=== PATIENT | male | born 2000 | race Caucasian/White ===

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

== ENCOUNTER 2023-10-15 08:56 | Outpatient (CLI) | payer BC, SELFPAY ==
--- NOTE | 2023-10-15 08:56 | CA_ITS ---
APPROVED REPORT Exam: Exercise Treadmill Technologist: Shahla Smalls Ht: 6 ft 5 in Wt: 202 lbs BSA: 2.25 m2 HR: 48 bpm BP: 130/65 mmHg Rhythm: NSR Indications: Chest pain Medical History Medications: No known home meds,,,,, Stress Test Details Test: Apolinar HR Resting HR: 62 bpm Max Heart Rate (APMHR): 199 bpm Max HR Achieved: 173 bpm Target HR (85% APMHR): 169 bpm % of APMHR: 87 Recovery HR: 86 bpm HR response to stress: Normal HR response to stress BP Resting BP: 130.0/65.0 mmHg Max BP: 179.0/76.0 mmHg Recovery BP: 138.0/71.0 mmHg BP response to stress: Normal blood pressure response to stress. ECG Resting ECG: Bradycardia with sinus arrhythmia, right bundle branch block Stress EC mm horizontal ST depression Arrhythmia: PVCs Recovery ECG: Return to baseline within 3 minutes of recovery Recovery Arrhythmia: PVC Clinical Exercise duration: 12:43 min Highest Stage Achieved: Exercise capacity: 12.8 METs Overall Exercise Capacity for Age: Average Stress ECG Conclusion Patient exercised 12:43 on Apolinar Protocol. Test stopped due to shortness of air. Symptoms: No chest pain. Arrhythmias/Ectopy: PVCs ST-T Changes: Approximately 1mm horizontal ST depression Conclusion: Average exercise capacity. EKG changes positive for ischemia with decreased specificity due to baseline right bundle branch block. GXT only (no imaging). Further evaluation with either coronary CTA (CCTA) vs. imaging stress test (i.e. nuclear stress test) is recommended in the setting of abnormal ECG findings at peak stress. Test Summary REST . . . . . . . Sitting REST . . . . . . . Standing REST 03:09 0.0 0.0 62 . 130/ 65 . . Stage 1 01:00 10.0 1.7 85 . . . . Stage 1 02:00 10.0 1.7 93 . . . . Stage 1 03:00 10.0 1.7 93 . 154/ 60 . . Stage 2 01:00 12.0 2.5 106 . . . . Stage 2 02:00 12.0 2.5 110 . . . . Stage 2 03:00 12.0 2.5 106 . 156/ 58 . . Stage 3 01:00 14.0 3.4 122 . . . . Stage 3 02:00 14.0 3.4 132 . . . . Stage 3 03:00 14.0 3.4 136 . 170/ 60 . . Stage 4 01:00 16.0 4.2 142 . . . . Stage 4 02:00 16.0 4.2 156 . . . . Stage 4 03:00 16.0 4.2 161 . . . . Stage 5 00:43 18.0 5.0 171 . . . Stop exercise at 12:43 RECOVERY 01:00 0.0 0.0 128 . . . . RECOVERY 02:00 0.0 0.0 104 . . . . RECOVERY 03:00 0.0 0.0 93 . 179/ 76 . . RECOVERY 04:00 0.0 0.0 89 . 146/ 73 . . RECOVERY 05:00 0.0 0.0 86 . 138/ 71 . . RECOVERY 05:20 0.0 0.0 86 . 138/ 71 . . Electronically signed by : Fatemeh Lainez MD 10/22/2023 00:49:53
--- NOTE | 2023-10-15 08:56 | CA_ITS ---
APPROVED REPORT EXAM: Comprehensive 2D, Doppler, and color-flow Echocardiogram Machine Sweeper Brush Maker: Mackenzie Chu, RT(R) Ht: 6 ft 5 in Wt: 202lbs BSA: 2.25 BP: 160/85 mmHg Indications: CP, SOB, abn EKG 2D Dimensions Left Atrium 2.87 cm M: 3.0 - 4.0 EF AP4 58.60 % LVOT 2.11 cm (M/F) 1.5-2.5 GL Strain -16.9 % M-Mode Dimensions RVDd 2.68 cm (0.9-2.6) LVDd 5.25 cm (3.5-5.7) Ao Diam 3.44 cm (2.0-3.7) LVDs 3.86 cm (3.5-5.7) IVSd 0.96 cm (0.6-1.1) PWd 0.86 cm (0.6-1.1) EF (Teich) 51.40% FS 26.50% EDV (Teich) 132.40 mL ESV (Teich) 64.30 mL LV Diastology E Decel Time 178 (160-240 msec) E/A Ratio 1.5 MED E' 9.0 (>= 7 cm/sec) E'/MED E' Ratio 8.44 (<= 14) LAT E' 16.3 (>= 10 cm/sec) E/LAT E' Ratio 4.66 (<= 14) Mitral Valve MV E Max Rock. 76.0 (40-130 cm/s) MV A Velocity 51.0 (40-130 cm/s) E/A Ratio 1.49 MV Decel. Time 178 (160-240 ms) Tricuspid Valve TR P. Velocity 231.00 cm/s RAP Estimate 10.00 mmHg RVSP 31.30 mmHg Left Ventricle The left ventricle is normal size. The left ventricular systolic function is normal. The left ventricular ejection fraction is within the normal range. There is normal left ventricular wall thickness. There is normal LV segmental wall motion. The left ventricular diastolic function is normal. LVEF is 55%. Right Ventricle The right ventricle is normal size. The right ventricular systolic function is normal. Atria The left atrium size is normal. The right atrium size is normal. There is no Doppler evidence of interatrial shunt. Aortic Valve The aortic valve opens well. The aortic valve is trileaflet. There is no aortic valvular stenosis. No aortic regurgitation is present. Mitral Valve The mitral valve is normal in structure. No evidence of mitral valve stenosis. There is no mitral valve regurgitation noted. Tricuspid Valve The tricuspid valve leaflets are thin and pliable. Mild tricuspid regurgitation. RVSP is 20-25 mmHg. Pulmonic Valve The pulmonary valve is normal in structure. Mild pulmonic regurgitation. Great Vessels The aortic root is normal in size. The ascending aorta is not well-visualized. IVC is normal in size and collapses >50% with inspiration. Pericardium There is no pericardial effusion. Other Information Study Quality: Adequate Conclusion Normal biventricular systolic function. Mild TR, mild PI. Electronically signed by : Fatemeh Lainez MD 10/21/2023 11:58:30
== END 2023-10-15 23:59 | disposition home or self-care (01) ==
LOC: RT 08:56
PROVIDERS: PCP Internal Medicine Adolescent Medicine; Visit Provider Nurse Practitioner Family
DX: R94.31 Abnormal electrocardiogram [ECG] [EKG] (principal); R06.09 Other forms of dyspnea; R07.89 Other chest pain
CPT/HCPCS: 93017; 93018; 93306

== ENCOUNTER 2023-12-16 07:08 | Outpatient (CLI) | payer BC, SELFPAY ==
--- NOTE | 2023-12-16 07:09 | CT_ITS ---
APPROVED REPORT Wreath And Garland Maker Hand: CLINICAL INDICATION Chest Pain TECHNIQUE Image Acquisition: A 128 slice MDCT scanner ([employer] View) was used for data acquisition. A noncontrast coronary calcium scan was performed. A CT attenuation threshold of 130 Hounsfield units (HU) was used for the detection of calcium in contiguous voxels of 1 sq mm in area to be counted as individual lesions. Bolus tracking in the ascending aorta with a threshold of 180 HU was performed. Immediately afterwards, ECG synchronized cardiac CT was then performed from the cardiac base to apex using retrospective gating with ECG tube current modulation. A total of 85 mL of Isovue 370 mg/mL contrast medium was administered at 5 mL/sec followed by a saline flush using a biphasic injection protocol. A tube voltage of 120 KVp was used. The patient received the following medications prior to the cardiac CT. 0.8 mg of sublingual nitroglycerin The average heart rate at the time of acquisition was 63 bpm and regular. Image Reconstruction Transaxial images were reconstructed at 0.67 mm slide thickness. Data was reviewed interactively on an advanced workstation capable of 2 and 3-dimensional displays in all conventional reconstruction formats, including multiplanar reformations, maximum intensity projections, curved multiplanar reformations, and volume rendered reconstructions. When applicable, selected routine images describing the relevant coronary anatomy and pathology were saved and sent to PACS. Complications None Technical Quality Overall image quality was good. Coronary artery opacification was adequate. Total DLP (Dose-Length Product) is 1317.1 mGy-cm. The reported value represents the total of one or more individual components during the CT acquisition of this date and at this time, and as such, the same value may appear in more than one CT report depending on the interpreting/reporting physicians. COMPARISON None FINDINGS CT Coronary Calcium Scoring LMA (Left Main Artery) = 0 LAD (Left Anterior Descending) = 0 LCX (Left Coronary Circumflex) = 0 RCA (Right Coronary Artery) = 0 Total Calcium Score = 0 using the AJ-130 method. The interpretation of the calcium heart score is based on the following continuum*: 0 = no calcified plaque detected (risk of coronary artery disease is very low ??? less than 5%) 1-10 = calcium detected in extremely minimal levels (risk of coronary diseases is still low ??? less than 10%) 11-100 = mild levels of plaque detected with certainty (mild or minimal narrowing of heart arteries is likely) 101-400 = definite,at least moderate levels of plaque detected (relatively high risk of a heart attack within 3-5 years) >401-999 = extensive levels of plaque detected (high risk of heart attack, high levels of vascular disease are present, high likelihood of at least one significant coronary narrowing) *The calcium heart score quantifies the burden of coronary calcification/plaque in the coronary arteries. The calcium heart score is not able to evaluate the presence or burden of non-calcified (i.e. soft) plaque. There is no identifiable calcification in the aortic valve, mitral annulus or mitral valve, pericardium, or myocardium. Coronary CT Angiography The coronary arterial system is right dominant. Quantitative Stenosis Grading: Left Main (LM): The left main originates normally from the left sinus of Valsalva. The LM bifurcates into the left anterior descending artery and left circumflex artery. The LM is patent with no evidence of atherosclerosis. Left Anterior Descending (LAD) and Diagonal Branches: The LAD gives off 2 diagonal branch(es). The LAD and its branches are patent with no evidence of atherosclerosis. There is no evidence of LAD-myocardial bridge. Left Circumflex (LCX) and Obtuse Marginals (OM): The LCX gives off 1 Obtuse Marginal (OM) branch(es). The LCX and its branches are patent with no evidence of atherosclerosis. Right Coronary Artery (RCA): The RCA originates normally from the right sinus of Valsalva. The RCA gives off a posterior descending artery (PDA) and posterolateral (PL) branches. The RCA and its branches are patent with no evidence of atherosclerosis. Non-Coronary Cardiac Findings: Analysis of the left ventricular (LV) structure and function was performed after 3-D reconstruction of the LV from axial images, with user-corrected automatic contouring for assessment of LV volumes and user-defined reconstruction from oblique planes for measurement of 3-D cardiac structure and function. -The left ventricle systolic function is normal. -There is no left atrial appendage filling defect. Two right pulmonary veins and two left pulmonary veins drain normally into the left atrium. -No pericardial thickening or calcification. -Central and branch pulmonary arteries in the [id number] are unremarkable. -Thoracic aorta within the visualized thoracic aortic-branches in the [id number] is unremarkable. Extracardiac Structures No significant extra-cardiac findings. Note, however, that this study is focused on the cardiac findings. IMPRESSION -No coronary calcification with an Agatston score = 0 using the AJ-130 method. -No evidence of significant flow-limiting atherosclerosis of the coronary arteries. -No evidence of coronary anomalies or myocardial bridges. -CAD-RADS 0. Management recommendations per ACC/AHA guidelines*, as clinically appropriate. *Recommendations: CAD RADS 0: Reassurance. Consider non-atherosclerotic causes of chest pain. CAD RADS 1: Consider non-atherosclerotic causes of chest pain. Consider preventive therapy and risk factor modification. CAD RADS 2: Consider non-atherosclerotic causes of chest pain. Consider preventive therapy and risk factor modification, particularly for patients with nonobstructive plaque in multiple segments. CAD RADS 3: Consider further functional testing. Consider symptom-guided anti-ischemic and preventive pharmacotherapy as well as risk factor modification per published guideline statements. CAD RADS 4A: Consider further functional testing or invasive coronary angiography with revascularization per published guideline statements. Consider symptom-guided anti-ischemic and preventive pharmacotherapy as well as risk factor modification per published guideline statements. CAD RADS 4B: Invasive coronary angiography recommended with revascularization per published guideline statements. Consider symptom-guided anti-ischemic and preventive pharmacotherapy as well as risk factor modification per published guideline statements. CAD RADS 5: Consider invasive angiography and/or viability assessment with revascularization per published guideline statements. Consider symptom-guided anti-ischemic and preventive pharmacotherapy as well as risk factor modification per published guideline statements. CRITICAL RESULT None COMMUNICATION Per this written report The coronary and cardiac findings of this CCTA were reviewed, reported, and signed by Good Lainez MD (Fortune Cookie Maker) Conclusion Electronically signed by : Fatemeh Lainez MD 12/16/2023 14:52:27
[2023-12-16 07:20] VITALS: BMI 25.2
[2023-12-16 07:44] VITALS: BP 154/70; PULSE 66; RESP 16; TEMP 36.3; O2SAT 100
[2023-12-16 07:56] LABS: Anion Gap 10.3 mEq/L (5-15); Blood Urea Nitrogen 11 mg/dl (9-20); Calcium 9.6 mg/dl (8.4-10.2); Carbon Dioxide 29 mmol/L (22.0-30.0); Chloride 104 mmol/L (98-107); Creatinine Clearance Estimated 228 mL/min (50-200); Estimated Glomerular Filt Rate 142 ml/min (>60); GFR (African American) 172 ML/MIN (>60); Glucose 85 mg/dl (74-100); Potassium 4.3 mmoL/L (3.5-5.1); Sodium 139 mmol/L (136-145)
[2023-12-16 08:46] VITALS: BP 137/70; PULSE 62; RESP 18; O2SAT 100
[2023-12-16] MEDS: NITROGLYCERIN 0.4MG SL TABLET SL (08:46)
[2023-12-16 08:50] VITALS: BP 118/51; PULSE 60; RESP 16; O2SAT 100
[2023-12-16 08:53] VITALS: BP 118/50; PULSE 58; RESP 16; O2SAT 100
[2023-12-16] MEDS: SODIUM CHLORIDE 0.9% 10ML SYR (RAD ONLY) 10 ML IV (08:58)
[2023-12-16] MEDS: 0.9 % SODIUM CHLORIDE 50 ML VIAL IV (08:58)
[2023-12-16] MEDS: IOPAMIDOL-370 (76%);100ML BOTTLE 85 ML IV (08:58)
[2023-12-16 09:05] VITALS: BP 127/74; PULSE 75; RESP 16; TEMP 36.6; O2SAT 100
== END 2023-12-16 09:05 | disposition home or self-care (01) ==
PROVIDERS: PCP Internal Medicine Adolescent Medicine; Visit Provider Physician Assistant
DX: R93.1 Abnormal findings on diagnostic imaging of heart and coronary circulation (principal); R94.31 Abnormal electrocardiogram [ECG] [EKG]; R07.89 Other chest pain
CPT/HCPCS: 75574; 80048; Q9967

== ENCOUNTER 2024-04-27 10:01 | Emergency (ER) | payer BC, SELFPAY ==
[2024-04-27 10:03] VITALS: BP 158/85; PULSE 75; RESP 17; TEMP 36.6; O2SAT 100; BMI 23.7
[2024-04-27] MEDS: METHOCARBAMOL 500MG TABLET 1500 MG PO (10:24)
[2024-04-27] MEDS: LIDOCAINE 5% TRANSDERMAL PATCH 1 EACH TP (10:24)
[2024-04-27] MEDS: ACETAMINOPHEN 500MG TAB 1000 MG PO (10:25)
[2024-04-27] MEDS: IBUPROFEN 600 MG TABLET PO (10:25)
[2024-04-27] MEDS: predniSONE 20MG TAB 40 MG PO (10:25)
--- NOTE | 2024-04-27 10:30 | ED_ITS ---
Discharge Plan Disposition Patient Disposition: Home, Self-Care Prescriptions Prescriptions: New prednisone 20 mg tablet 40 mg PO DAILY 5 Days Qty: 10 0RF methocarbamol 750 mg tablet 1,500 mg PO TID 5 Days Qty: 30 0RF Referrals Follow up/Referrals: Cassandra Bermudez APRN [Primary Care Provider] - See instructions Activity Restrictions/Add. Instructions Additional Instructions/Restrictions: Call your family doctor to establish care for this visit to the emergency department and schedule follow-up within 48 hours to ensure improvement. If you have any worsening of your condition or any other concerning signs or symptoms, return to the emergency department or your primary care doctor for further evaluation. Talk to family doctor about physical therapy or a look at physical therapy stretches for sciatica online. Prednisone each morning for the next 5 days. If you continue having back pain, call Dr. Tsai office for follow-up for local injections or further management. Clinical Impressions Clinical Impression: Lumbago with sciatica, right side Qualifiers: Chronicity: acute Back pain laterality: right Qualified Code(s): M54.41 - Lumbago with sciatica, right side Instructions Patient Instructions: DI for Low Back Pain Print Language Print Language: Trinidadian Discharge ED Provider: Mahesh Becker General Adult HPI General Chief complaint: Back Pain/Injury Stated complaint: pain rt back, rt leg, numbness in foot Time Seen by Provider: 04/27/24 10:11 Mode of Arrival: Ambulatory Source of Information: Patient Limitations: No Limitations Description of Symptoms (Recalled from ER Triage Doc. by RN): pt to the ED with right lower back pain x 3 weeks. pt reports the pain as a sharp and sometimes aching pain that radiates down his leg to his toes with intermitten tingling at times. pt denies any injury. pt seperately states that he did fall on ice last night but doesnt report any lingering pain from that. History of Present Illness HPI narrative: Please note that above description of symptoms, in this electronic medical record under categorization of recalled from ER triage doctor by RN are reflective of an initial nursing assessment, however, is not reflective of my full history and physical exam that was personally taken and clarified. Consequentially, this preceding description of symptoms, which may include the patient's categorized chief complaint in the EMR, do not reflect my personal clinical impression, and the ultimate description of history of present illness and patient stated complaints should be deferred to this section of the note. Unless stated otherwise or congruent with this section of the note, additional signs, symptoms, or incongruence should be interpreted as inaccurate with my clinical impression. Related Data Previous Rx's ?Medication ?Instructions ?Recorded methocarbamol 750 mg tablet 1,500 mg (2 x 750 mg) PO TID 5 04/27/24 days #30 tabs prednisone 20 mg tablet 40 mg (2 x 20 mg) PO DAILY 5 days 04/27/24 #10 tabs Allergies Allergy/AdvReac Type Severity Reaction Status Date / Time acetaminophen (ACETAMINOPHEN) Allergy Unknown Verified 12/16/23 07:38 ondansetron (From ZOFRAN ( Allergy Unknown Verified 12/16/23 07:38 HYDROCHLORIDE)) [facility] Disclaimer: The information contained in this section may have been updated after the patient was seen, as this information can be updated by other users. Medical History (Updated 04/27/24 @ 10:34 by Mahesh Becker MD) History of chest pain Abnormal findings on diagnostic imaging of heart and coronary circulation Surgical History (Updated 12/16/23 @ 07:37 by Ariadna Madsen RN) H/O hand surgery Family History (Updated 12/16/23 @ 07:37 by Ariadna Madsen RN) Grandfather Heart attack Grandmother Diabetes Bleeding disorder Mother Diabetes Other History of multiple sclerosis Social History (Updated 12/16/23 @ 07:38 by Ariadna Madsen RN) Smoking Status: Never smoker alcohol intake: never current occupational status: employed Travel in the last 8 weeks: None Have you lived/traveled outside [place] in past 30 days?: No Contact w/someone who lives/traveled outside [place] past 30 days?: No Exposure to someone with infectious disease in past 14 days?: No Do you have a fever (greater than 100.4 F or 38 C)?: No Have you tested positive for COVID-19: No Exposed to someone with COVID-19 in past 14 days?: No Do you have a sore throat?: No Do you have a cough?: No Do you have any weakness?: No Do you have any diarrhea?: No Are you experiencing any unusual bleeding?: No Do you have any muscle aches/pain?: Yes Do you have any abdominal pain?: No Are you experiencing loss of taste or smell?: No Other Medical History Have you received the Flu Vaccine for this season: No Have you received the Pneumonia Vaccine: No ROS Obtained: Yes All systems reviewed & no additional complaints except as documented Physical Exam General General appearance: alert Head Head exam: atraumatic and normocephalic Eye Eye exam: Present normal appearance, PERRL and EOMI Neck Neck exam: Present normal inspection, full ROM and trachea midline Respiratory Respiratory exam: Absent respiratory distress, wheezes, stridor, accessory muscle use or prolonged expiratory phase Cardiovascular Cardiovascular exam: Present other (Pulses equal symmetric in upper and lower extremities) Abdominal Exam Abdominal exam: Present soft; Absent distention, tenderness or pulsatile mass Extremities Exam Extremities exam: Absent edema Neurological Exam Neurological exam: Present alert, oriented X3 and CN II-XII intact; Absent motor sensory deficit Skin Skin exam: Present warm and dry; Absent diaphoresis or erythema Medical Decision Making Medical Records Medical records reviewed: Yes I reviewed the patient's medical records. Screening: Per USPSTF and CDC recommendations, given the prevalence of disease in our region, it is our hospital?s policy to screen for HIV and viral Hepatitis for all patients aged 18 and over and those with ongoing risk factors. Pete Inquiry Pt receiving controlled substance: No Pete was queried for this patient: No Vital Signs: 04/27/24 10:03 Temperature 97.9 F Temperature Source Oral Pulse Rate [Left Radial] 75 Respiratory Rate 17 Blood Pressure [Right Arm] 158/85 H Blood Pressure Mean [Right Arm] 109 Blood Pressure Source [Right Arm] Automatic Cuff Blood Pressure Position [Right Arm] Sitting 02 Sat by Pulse Oximetry 100 Oxygen Delivery Method Room Air Orders (Tests/Meds): ED MEDICATIONS Discontinued Medications Generic Name Dose Route Start Last Admin Trade Name Freq PRN Reason Stop Dose Admin Acetaminophen 1,000 mg 04/27/24 10:11 04/27/24 10:25 Acetaminophen 500mg Tab PO 04/27/24 10:12 1,000 mg ONCE ONE Administration Ibuprofen 600 mg 04/27/24 10:11 04/27/24 10:25 Ibuprofen 600 Mg Tablet PO 04/27/24 10:12 600 mg ONCE ONE Administration Lidocaine 1 each 04/27/24 10:11 04/27/24 10:24 Lidocaine 5% Transdermal Patch TP 04/27/24 10:12 1 each ONCE ONE Administration Methocarbamol 1,500 mg 04/27/24 10:11 04/27/24 10:24 Methocarbamol 500mg Tablet PO 04/27/24 10:12 1,500 mg ONCE ONE Administration Prednisone 40 mg 04/27/24 10:11 04/27/24 10:25 Prednisone 20mg Tab PO 04/27/24 10:12 40 mg ONCE ONE Administration Medical Decision Narrative: This is a 24-year-old male with history of sciatica presenting with sciatica nerve flareup. He states that this has been ongoing for about 2 months, getting worse. States that he has been doing stretches at home, but nothing seems to be helping. Nothing in particular makes it better or worse. No inciting event. States that he has pain that shoots down from his lower back down his right buttock posteriorly laterally down his right lower leg and sometimes his toes go numb. No bowel or bladder dysfunction, difficulty walking, perineal anesthesia, or any other concerns. History obtained the patient. On arrival, he is neurologically intact. Ambulatory without issue. Neurovascular intact lower extremities. No midline spinal tenderness. I feel critical compressive pathology is incredibly unlikely given no acute inciting event or trauma. Patient to be given steroid, muscle relaxer, lidocaine patch. Also sent to pharmacy. Imaging of the lumbar spine was considered, but not deemed necessary. Patient has clinical sciatica with no red flag signs or symptoms. Appropriate for outpatient management and discharge. Because patient at baseline without signs or symptoms of clinical decompensation, deemed appropriate for discharge. I discussed my clinical impression with patient and answered all questions. At this time, the evidence for any other entities in the differential is insufficient to warrant any further testing or ED observation. This was e xplained as well. Advisory was given that persistent or worsening symptoms require further evaluation. I confirmed the understanding of this discussion. [employer] disclaimer Much of this encounter note is an electronic labor arbitrator spoken language to printed text. Electronic labor arbitrator of the spoken language may permit errors. Although I have reviewed the note, some errors may still exist. Critical Care Critical Care Time Critical Care Time: No
[2024-04-27 10:38] VITALS: BP 158/85; PULSE 75; RESP 17; TEMP 36.6; O2SAT 100
== END 2024-04-27 10:39 | disposition home or self-care (01) ==
PROVIDERS: Emergency Provider Emergency Medicine; PCP Nurse Practitioner Family
DX: M54.41 Lumbago with sciatica, right side (principal); M79.604 Pain in right leg; W00.0XXA Fall on same level due to ice and snow, initial encounter; Y93.9 Activity, unspecified; Y92.9 Unspecified place or not applicable
CPT/HCPCS: 99283